=== PATIENT | male | born 1980 ===

== ENCOUNTER 2017-06-22 15:43 | Emergency (ER) | payer OTHER ==
[2017-06-22 15:58] VITALS: BP 111/70; PULSE 59; RESP 18; TEMP 97.7; O2SAT 100
[2017-06-22] MEDS ORDERED: Lidocaine 1% Inj (20ml) ONE (16:18)
--- NOTE | 2017-06-22 16:29 | ED PDOC ---
HPI: Skin/Bite Injury Time Seen by Provider: 06/22/17 16:08 Chief Complaint (Nursing): Finger,Hand,&Wrist Chief Complaint (Provider): Finger History Per: Patient History/Exam Limitations: no limitations Current Symptoms Are (Timing): Still Present Additional Complaint(s): 36 year old male presents to the emergency department with a complaint of pain and swelling of the right index finger. Reports he was given antibiotics by her primary care doctor with no improvement prompting an emergency department visit. Denies fever, chills, numbness, or decrease in range of motion of the finger. PMD: Dr. Raffi Brooks MD Past Medical History Vital Signs: Last Vital Signs Temp 97.7 F 06/22/17 15:55 Pulse 59 L 06/22/17 15:55 Resp 18 06/22/17 15:55 BP 111/70 06/22/17 15:55 Pulse Ox 100 06/22/17 18:38 - Family History Family History: States: No Known Family Hx - Immunization History Hx Influenza Vaccination: No - Home Medications Home Medications: Ambulatory Orders Medication Instructions Recorded Ondansetron ODT [Zofran ODT] 1 odt PO BID PRN #6 odt 03/29/15 Cephalexin [Keflex] 500 mg PO Q6 #28 capsule 06/22/17 Sulfamethoxazole/Trimethoprim 2 tab PO BID #28 tab 06/22/17 [Bactrim DS 800 mg-160 mg] - Allergies Allergies/Adverse Reactions: Allergies Allergy/AdvReac Type Severity Reaction Status Date / Time No Known Allergies Allergy Verified 03/29/15 12:18 Review of Systems ROS Statement: Except As Marked, All Systems Reviewed And Found Negative (As per HPI, otherwise negative) Constitutional: Negative for: Fever, Chills, Other (decreased range of motion of the right index finger) Musculoskeletal: Positive for: Other (Pain and swelling to the right index finger) Neurological: Negative for: Numbness Physical Exam - Reviewed Nursing Documentation Reviewed: Yes Vital Signs Reviewed: Yes - Physical Exam Appears: Positive for: No Acute Distress Head Exam: Positive for: NORMAL INSPECTION Skin: Positive for: Warm, Dry. Negative for: Cyanosis Cardiovascular/Chest: Positive for: Regular Rate, Rhythm. Negative for: Gallop , Murmur Gastrointestinal/Abdominal: Positive for: Normal Exam, Soft. Negative for: Tenderness Extremity: Positive for: Normal ROM (full), Tenderness (and swelling with fluctuance to the nail margin of the right index finger.). Negative for: Deformity Neurologic/Psych: Positive for: Alert, Oriented (x3) - ECG O2 Sat by Pulse Oximetry: 100 (RA) Pulse Ox Interpretation: Normal Medical Decision Making Medical Decision Making: Time: 1615 Initial impression: Abscess, Paronychia Initial plan: --Incision and drainage (I&D) --Discharge Time: --Procedure can be viewed within I&D tab in chart. Time: 1710 Patient is tolerated procedure well and is medically stable for discharge. Given Rx for Keflex 500 mg and Bactrim DS 800mg-160mg. Advised to follow up with primary care physician in 1-2 days without fail. Advised to take medication as prescribed. Return to the emergency room at any time for any new or worsening symptoms. Patient states he fully agrees with and understands discharge instructions. States that he agrees with the plan and disposition. Verbalized and repeated discharge instructions and plan. I have given the patient opportunity to ask any additional questions. Clinical impression: Paronychia Scribe Attestation: Documented by Celine Alonzo, acting as a scribe for Lizzette Boswell PA-C Provider Scribe Attestation: All medical record entries made by the Scribe were at my direction and personally dictated by me. I have reviewed the chart and agree that the record accurately reflects my personal performance of the history, physical exam, medical decision making, and the department course for this patient. I have also personally directed, reviewed, and agree with the discharge instructions and disposition. Disposition - Clinical Impression Clinical Impression: Paronychia - Patient ED Disposition Is Patient to be Admitted: No Counseled Patient/Family Regarding: Diagnosis, Need For Followup, Rx Given - Disposition Disposition: Routine/Home Disposition Time: 16:30 Condition: STABLE Additional Instructions: Thank you for letting us take care of you today. You were treated for paronychia. The emergency medical care you received today was directed at your acute symptoms. If you were prescribed any medication, please fill it and take as directed. It may take several days for your symptoms to resolve. Return to the Emergency Department if your symptoms worsen, do not improve, or if you have any other problems. Please contact your doctor in 2 days for re-evaluation and follow up. Bring any paperwork you were given at discharge with you along with any medications you are taking to your follow up visit. Our treatment cannot replace ongoing medical care by a primary care provider (PCP) outside of the emergency department. Thank you for allowing the [facility] team to be part of your care today. Prescriptions: Cephalexin [Keflex] 500 mg PO Q6 #28 capsule Sulfamethoxazole/Trimethoprim [Bactrim DS 800 mg-160 mg] 2 tab PO BID #28 tab Instructions: Paronychia (DC) Forms: [employer] ([place]), [facility] ED School/Work Excuse - Incision & Drainage Of Abscess Anesthesia: Lidocaine 1% Procedure: Incised W/Scalpel Blade#: (11.0), Drained Pus (Purulent material expressed. No packing inserted. Applied clean dressing. )
== END 2017-06-22 17:11 | disposition home or self-care (01) ==
LOC: H.ER 15:43
DX: L03.011 Cellulitis of right finger (principal)